=== PATIENT | female | born 1990 | race Caucasian/White ===

== ENCOUNTER 2018-12-07 15:35 | Emergency (ER) | payer SELFPAY ==
[~2018-12-07] VITALS: Ht 157.5 cm; Wt 55.0 kg
[2018-12-07 16:34] VITALS: BP 130/74
[2018-12-07] MEDS ORDERED: LEVO175T7 PO (16:41)
[2018-12-07 18:15] LABS: CLARITY URINE CLEAR (CLEAR); COLOR URINE YELLOW (YELLOW); KETONES URINE NEGATIVE (NEGATIVE); LEUKOCYTE ESTERASE URINE NEGATIVE (NEGATIVE); NITRITE URINE NEGATIVE (NEGATIVE); OCCULT BLOOD URINE 3+ (NEGATIVE); PROTEIN URINE NEGATIVE (NEGATIVE); SPECIFIC GRAVITY URINE 1.022 (1.005-1.030); UROBILINOGEN URINE 0.2 E.U./dL (0.2-1.0)
== END 2018-12-07 21:15 | disposition left against medical advice (07) ==
LOC: ER 15:35
DX: Z53.21 Procedure and treatment not carried out due to patient leaving prior to being seen by health care provider (principal)

== ENCOUNTER 2021-02-22 13:27 | Emergency (ER) | payer MEDICAID ==
[~2021-02-22] VITALS: Ht 167.6 cm; Wt 52.0 kg
[~2021-02-22 13:27] MED LIST: LEVO175T7 PO
[2021-02-22] MEDS ORDERED: IBUP-2029 MT (15:59)
[2021-02-22 16:22] VITALS: BP 137/82
== END 2021-02-22 16:23 | disposition home or self-care (01) ==
LOC: ER 14:23
DX: M79.641 Pain in right hand (principal); M79.642 Pain in left hand; M25.572 Pain in left ankle and joints of left foot; M25.571 Pain in right ankle and joints of right foot
CPT/HCPCS: 99282